=== PATIENT | female | born 1935 | race Hispanic/Latino ===

== ENCOUNTER 2017-03-21 13:22 | Outpatient (CLI) | payer MEDICARE ==
--- NOTE | 2017-03-21 16:09 | XRay Report ---
XRAY LUMBAR SPINE THREE VIEWS: 03/21/17 13:22:00 CLINICAL: Chronic back pain. FINDINGS: Grade I L4-5 spondylolisthesis with no pars defect identified. The rest of the bodies are in normal alignment. Normal vertebral body height with no fractures. L1-2 disc space narrowing with large anterior and posterior osteophytes. Anterior osteophytes at all levels but most prominent at L2-3. Extensive lower lumbar facet joint sclerosis at L4-5 and L5-S1. Pedicles are intact. Normal soft tissues. IMPRESSION: 1. Lower lumbar facet joint arthropathy and Grade I L4-5 spondylolisthesis. 2. Degenerative disc disease, most significant at L12 and L2-3. 3. Recommend flexion-extension views and side bending AP X-rays of the L-spine to assess for instability at L4-5.
== END 2017-03-21 13:23 | disposition home or self-care (01) ==
LOC: SPVIMAG 13:22
PROVIDERS: ATTEND Internal Medicine
DX: M51.36 Other intervertebral disc degeneration, lumbar region (principal); M43.16 Spondylolisthesis, lumbar region; M12.88 Other specific arthropathies, not elsewhere classified, other specified site
CPT/HCPCS: 72100